=== PATIENT | male | born 1970 | race Caucasian/White ===

== ENCOUNTER 2017-08-01 10:54 | Emergency (ER) | payer SELFPAY ==
[~2017-08-01] VITALS: Ht 171.4 cm; Wt 89.3 kg
[2017-08-01] MEDS ORDERED: SODIUM CHLORIDE 0.9% 1,000 ML IV ONE (11:11)
[2017-08-01] MEDS ORDERED: LORazepam 2 MG/ML, 1ML ONE (11:20)
[2017-08-01] MEDS ORDERED: LORazepam 2 MG/ML, 1ML IVPush ONE (11:30)
[2017-08-01] MEDS ORDERED: SODIUM CHLORIDE FLUSH 10ML SYR IVF ONE (11:30)
[2017-08-01 11:31] LABS: HEMATOCRIT 51.6 % (39.2-51.8); HEMOGLOBIN 17.4 g/dL (13.7-18.0); WHITE BLOOD COUNT 7.3 x10^3/uL (3.4-10)
[2017-08-01 11:42] LABS: DAU SCREEN DISCLAIMER
[2017-08-01 11:44] LABS: BLOOD UREA NITROGEN 15 mg/dL (7-18)
[2017-08-01 11:56] LABS: ASPARTATE AMINO TRANSFERASE 25 U/L (15-37)
[2017-08-01 12:14] VITALS: BP 143/112
== END 2017-08-01 12:49 | disposition home or self-care (01) ==
LOC: ED 12:40
DX: R56.9 Unspecified convulsions (principal); Z72.820 Sleep deprivation; Z72.89 Other problems related to lifestyle
CPT/HCPCS: 36415; 70450; 80053; 80307; 85025; 93005; 96361; 96374; 99285; J2060; J7030; G0479